=== PATIENT | female | born 1970 | race Hispanic/Latino ===

== ENCOUNTER 2018-06-30 09:31 | Outpatient (CLI) | payer BC ==
--- NOTE | 2018-07-11 14:50 | MMO ---
BILATERAL SCREENING MAMMOGRAM: Date: 06/30/18 HISTORY: 48-year-old female. Routine screening mammography. COMPARISON: Prior mammograms were in [place] and are not available. Therefore, the current study will be treat ed as a baseline mammogram. TECHNIQUE: CC and MLO views of both breasts are submitted for interpretation. This patient's mammogram was reviewed with the assistance of computer-aided detection. FINDINGS: The breasts are composed of scattered fibroglandular tissue. In the right breast, no suspicious dominant mass, architectural distortion, or suspicious calcificati ons. There are indeterminate calcifications in the left retroareolar region. Additional views are recommen ded. IMPRESSION: BIRADS 0: Incomplete: Need Additional Imaging Evaluation RECOMMENDATION: Spot magnification compression view of the left breast in the CC, ML and MLO projection, along with a 90 degree view. The facility will notify patient of need for additional imaging services. POS: [facility]
== END 2018-06-30 09:32 | disposition home or self-care (01) ==
LOC: SCSMAMMO 09:31
PROVIDERS: ATTEND Family Medicine
DX: Z12.31 Encounter for screening mammogram for malignant neoplasm of breast (principal)
CPT/HCPCS: 77067

== ENCOUNTER 2018-07-18 14:21 | Outpatient (CLI) | payer BC | END 2018-07-18 14:22 | disposition home or self-care (01) | LOC: BICMAMMO 14:21 | PROVIDERS: ATTEND Family Medicine | DX: R92.1 Mammographic calcification found on diagnostic imaging of breast (principal) | CPT/HCPCS: G0279 ==